=== PATIENT | male | born 1995 | race American Indian/Alaskan Native ===

== ENCOUNTER 2016-08-21 01:23 | Emergency (ER) | payer MEDICAID ==
[2016-08-21 01:34] VITALS: BP 126/68; PULSE 75; RESP 16; TEMP 98; O2SAT 98; BMI 23.7
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
== END 2016-08-21 03:17 | disposition home or self-care (01) ==
LOC: ED 01:23
DX: S51.811A Laceration without foreign body of right forearm, initial encounter (principal); X58.XXXA Exposure to other specified factors, initial encounter; Y93.71 Activity, boxing; Y92.89 Other specified places as the place of occurrence of the external cause